=== PATIENT | male | born 1985 | race Caucasian/White ===

== ENCOUNTER 2017-08-08 16:16 | Emergency (ER) | payer OTHER ==
[2017-08-08 16:23] VITALS: BP 145/76; PULSE 66; RESP 16; TEMP 98.2; O2SAT 95
--- NOTE | 2017-08-08 16:38 | EDPHY ---
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 No glass or fractured objects. Tetanus up-to- date. He is complaining of continued, slow bleeding. No flexor extensor deficits. PHYSICAL EXAM (Prior to examination, patient consented to physical exam, hands were washed and my usual and customary physical exam procedures followed) 1) GENERAL: Well-developed, well-nourished, alert and oriented. Appears to be in no acute distress. 2) HEAD: Normocephalic 3) HEENT: sclera anicteric 4) LUNGS: Breathing comfortably. 5) SKIN: Left thumb proximal phalanx palmar aspect 1 cm x 0.5 cm superficial skin avulsion with slow capillary like bleed. 6) MUSCULOSKELETAL: Flexor extensor function intact at the MCP and IP. 7) NEUROLOGIC: Full sensation and two-point discrimination intact distally Smoking Status: Never smoked Constitutional: Initial Vital Signs Temperature (C) 36.8 C 08/08/17 16:20 Heart Rate 66 08/08/17 16:20 Respiratory Rate 16 08/08/17 16:20 Blood Pressure 145/76 H 08/08/17 16:20 O2 Sat (%) 95 08/08/17 16:20 O2 Delivery Mode Room Air Allergies/Adverse Reactions: No Known Allergies Allergy (Verified 08/08/17 16:19) Home Medications: Medication Instructions Recorded NK [No Known Home Meds] 08/08/17 MDM/Departure - MDM Procedures: Procedure: Laceration repair. I explained the indications, risks and benefits for both laceration repair and anesthetic administration. Verbal consent was obtained from the patient. The laceration on the left thumb was anesthetized using 0.5% bupivicaine without epinephrine digital block. After anesthetic administered the patient was observed for a period of time and had no apparent adverse effects. No foreign body seen, no foreign bodies palpated. Surgicel dressing applied resulting in hemostasis. Patient tolerated procedure - Depart Disposition: Home, Routine, Self-Care Clinical Impression: Avulsion of skin of finger Qualifiers: Encounter type: initial encounter Qualified Code(s): S64.622E - Unspecified open wound of unspecified finger without damage to nail, initial encounter Condition: Good Instructions: Skin Avulsion (ED) Additional Instructions: Return to the ER if you develop redness, swelling, discharge, warmth to the wound, red streaks going up your arm, or any other symptoms that concern you. Referrals: Follow-up, with your work comp provider in 2 days [Other] - As per Instructions
== END 2017-08-08 16:43 | disposition home or self-care (01) ==
PROC: 3E0T3BZ Introduction of Anesthetic Agent into Peripheral Nerves and Plexi, Percutaneous Approach (ICD-10-PCS; principal; 2017-08-08)
DX: S61.002A Unspecified open wound of left thumb without damage to nail, initial encounter (principal); W26.8XXA Contact with other sharp object(s), not elsewhere classified, initial encounter; Y92.69 Other specified industrial and construction area as the place of occurrence of the external cause; Y99.0 Civilian activity done for income or pay; Y93.89 Activity, other specified